=== PATIENT | female | born 1990 | race Caucasian/White ===

== ENCOUNTER 2016-11-19 19:54 | Emergency (ER) | payer SELFPAY ==
[~2016-11-19] VITALS: Ht 177.8 cm; Wt 73.5 kg
[2016-11-19] MEDS ORDERED: ONDANSETRON ODT 4 MG TAB.RAPDIS. PO ONE (20:45)
[2016-11-19] MEDS ORDERED: KETOROLAC TROMETHAMINE 60 MG/2 ML INJ. IM ONE (20:45)
[2016-11-19 20:50] LABS: BILIRUBIN,URINE NEGATIVE (NEG); GLUCOSE,URINE NEGATIVE (NEG); NITRITE,URINE NEGATIVE (NEG); PROTEIN,URINE 30 mg/dL (NEG-TRACE); UROBILINOGEN,URINE 0.2 mg/dL (0.2 mg/dL)
[2016-11-19 20:56] LABS: BACTERIA,URINE MODERATE /HPF (0-FEW); SQUAMOUS EPITHELIAL CELL,UR FEW /LPF; WBC,URINE >40 /HPF (0-4)
[2016-11-19 21:04] VITALS: BP 132/60
[2016-11-19] MEDS ORDERED: ONDA4TAB10 PO (21:05)
[2016-11-19] MEDS ORDERED: LEVO750T31 PO (21:05)
[2016-11-19] MEDS ORDERED: HYDR-971 PO (21:05)
--- NOTE | 2016-11-19 21:05 | PHYS DOC ---
Past Medical History Past Medical History: No Pertinent History Past Surgical History: Tubal ligation Alcohol Use: None Drug Use: None Adult General Chief Complaint Chief Complaint: FLANK PAIN HPI HPI Patient is a 26 year old female presenting to the emergency department for evaluation of right flank pain radiating to right abdomen that has been going on for approximately one week. She says it makes her nauseated but she denies any fevers chills vomiting or diaphoresis shortness of breath dysuria or hematuria. Review of Systems Review of Systems Constitutional: Denies fever or chills [] Cardiovascular: No additional information not addressed in HPI [] GI: Denies abdominal pain, nausea, vomiting, bloody stools or diarrhea [] : Denies dysuria or hematuria [] Musculoskeletal: + back pain. No joint pain [] Integument: Denies rash or skin lesions [] Neurologic: Denies headache, focal weakness or sensory changes [] Current Medications Current Medications Current Medications Medications (Trade) Dose Ordered Sig/Lexa Start Time Stop Time Status Last Admin Dose Admin Ketorolac Tromethamine (Toradol Im) 60 mg 1X ONCE 11/19/16 20:45 11/19/16 20:46 DC 11/19/16 21:04 60 MG Ondansetron HCl (Zofran Odt) 4 mg 1X ONCE 11/19/16 20:45 11/19/16 20:46 DC 11/19/16 21:03 4 MG Allergies Allergies Allergies Coded Allergies Type Severity Reaction Last Updated Verified No Known Drug Allergies 11/19/16 No Physical Exam Physical Exam Constitutional: Well developed, well nourished, no acute distress, non-toxic appearance. [] Cardiovascular:Heart rate regular rhythm, no murmur [] Lungs & Thorax: Bilateral breath sounds clear to auscultation [] Abdomen: Bowel sounds normal, soft, positive right lower quadrant tenderness, no masses, no pulsatile masses. [] Skin: Warm, dry, no erythema, no rash. [] Back: No tenderness, + R CVA tenderness. [] Current Patient Data Vital Signs Vital Signs Date Time Temp Pulse Resp B/P (MAP) Pulse Ox O2 Delivery O2 Flow Rate FiO2 11/19/16 21:04 80 132/60 (84) 11/19/16 20:10 98.4 20 96 Room Air 98.4 Lab Values Laboratory Tests Test 11/19/16 19:18 11/19/16 20:10 POC Urine HCG, Qualitative Hcg negative (Negative) Urine Collection Type Unknown Urine Color Yellow Urine Clarity Cloudy Urine pH 7.0 Urine Specific Cameron 1.015 Urine Protein 30 mg/dL (NEG-TRACE) Urine Glucose (UA) Negative mg/dL (NEG) Urine Ketones (Stick) Trace mg/dL (NEG) Urine Blood Moderate (NEG) Urine Nitrite Negative (NEG) Urine Bilirubin Negative (NEG) Urine Urobilinogen Dipstick 0.2 mg/dL (0.2 mg/dL) Urine Leukocyte Esterase Large (NEG) Urine RBC 11-20 /HPF (0-2) Urine WBC >40 /HPF (0-4) Urine Squamous Epithelial Cells Few /LPF Urine Bacteria Moderate /HPF (0-FEW) Urine Mucus Mod /LPF EKG EKG [] Radiology/Procedures Radiology/Procedures [] Course & Med Decision Making Course & Med Decision Making Patient with symptoms and urinalysis consistent with pyelonephritis. Kidney stone and other acute intra-abdominal process such as appendicitis a consideration as well. Patient is very much in a hurry to leave and she refused getting any further testing such as blood work or CT scanning. Lysed understanding that a life-threatening condition could be missed and that she could suffer and disability from missing a critical diagnosis. Patient will be discharged on Levaquin and told to come back to the ER immediately with any new or worsening pain fevers vomiting or general concerns. Patient discharged in stable condition. Dragon Disclaimer Dragon Disclaimer This electronic medical record was generated, in whole or in part, using a voice recognition dictation system. Departure Departure Impression: Primary Impression: Pyelonephritis Disposition: 01 HOME, SELF-CARE Condition: GOOD Referrals: NO PCP (PCP) Patient Instructions: Pyelonephritis, Adult Additional Instructions: TAKE 400MG OF IBUPROFEN EVERY 6 HOURS AND THE NORCO FOR BREAKTHROUGH PAIN. DRINK PLENTY OF WATER. Scripts Ondansetron (ZOFRAN ODT) 4 Mg Tab.rapdis 4 MG PO BID Y for NAUSEA/VOMITING, #10 TAB Prov: TERRY JHAVERI DO 11/19/16 Hydrocodone/Apap 5-325 (NORCO 5-325 TABLET) 1 Each Tablet 1 TAB PO PRN Q6HRS Y for PAIN, #10 TAB 0 Refills Prov: TERRY JHAVERI DO 11/19/16 Levofloxacin (LEVAQUIN) 750 Mg Tablet 1 TAB PO DAILY, #5 TAB Prov: TERRY JHAVERI DO 11/19/16 TERRY JHAVERI DO November 19, 2016 21:05
== END 2016-11-19 21:11 | disposition home or self-care (01) ==
LOC: ER 19:54
DX: N12 Tubulo-interstitial nephritis, not specified as acute or chronic (principal); Z98.51 Tubal ligation status
CPT/HCPCS: 81001; 84703; 87086; 96372; 99284; J1885; Q0162; 81025